=== PATIENT | female | born 1995 | race Caucasian/White ===

== ENCOUNTER 2016-10-08 14:22 | Emergency (ER) | payer OTHER ==
[2016-10-08 14:49] VITALS: BP 137/73; PULSE 72; RESP 18; TEMP 99.5
--- NOTE | 2016-10-08 15:30 | ED PDOC ---
Arrival/HPI - General Historian: Patient - History of Present Illness Time/Duration: 24 hours Symptom Onset: Sudden Symptom Course: Unchanged Severity Level: Mild Activities at Onset: Light Context: Home <Hakan Barnes - Last Filed: 10/08/16 16:49> <Karyn Vidal PA-C - Last Filed: 10/08/16 17:11> - General Chief Complaint: Lower Extremity Problem/Injury Time Seen by Provider: 10/08/16 15:26 - History of Present Illness Narrative History of Present Illness (Text): 10/08/16 15:27 Hawa James is a 20 year old female who presents to the emergency department complaining of left foot pain. Patient states that the refrigerator door fell off the hinge onto her left foot. Reports of pain and bruising to the area. Denies any numbness/ weakness to the extremity or any difficulty ambulating. Denies any other complaints. (Hakan Barnes) Past Medical History - Provider Review Nursing Documentation Reviewed: Yes - Infectious Disease Hx of Infectious Diseases: None - Reproductive Menopause: No - Psychiatric Hx Substance Use: No - Anesthesia Hx Anesthesia: No <Hakan Barnes - Last Filed: 10/08/16 16:49> Family/Social History - Physician Review Nursing Documentation Reviewed: Yes Family/Social History: No Known Family HX Smoking Status: Unknown If Ever Smoked Hx Alcohol Use: No Hx Substance Use: No <Hakan Barnes - Last Filed: 10/08/16 16:49> Allergies/Home Meds <Hakan Barnes - Last Filed: 10/08/16 16:49> <Karyn Vidal PA-C - Last Filed: 10/08/16 17:11> Allergies/Adverse Reactions: Allergies No Known Allergies Allergy (Verified 10/08/16 14:49) Review of Systems - Physician Review All systems were reviewed & negative as marked: Yes - Review of Systems Constitutional: Normal. absent: Fatigue, Fevers Respiratory: Normal Cardiovascular: Normal Gastrointestinal: Normal. absent: Abdominal Pain, Diarrhea, Nausea, Vomiting Genitourinary Female: Normal Musculoskeletal: Other (left foot pain and bruising ) <Hakan Barnes - Last Filed: 10/08/16 16:49> Physical Exam Vital Signs Reviewed: Yes Temperature: Afebrile Blood Pressure: Normal Pulse: Regular Respiratory Rate: Normal Appearance: Positive for: Well-Appearing, Non-Toxic, Comfortable Pain Distress: None Mental Status: Positive for: Alert and Oriented X 3 - Systems Exam Head: Present: Atraumatic, Normocephalic Pupils: Present: PERRL Conjunctiva: Present: Normal Respiratory/Chest: Present: Clear to Auscultation, Good Air Exchange. No: Respiratory Distress, Accessory Muscle Use Cardiovascular: Present: Regular Rate and Rhythm, Normal S1, S2. No: Murmurs Upper Extremity: Present: Normal Inspection. No: Cyanosis, Edema Lower Extremity: Present: Other (ecchymosis and tenderness to dorsal lateral aspect of left foot. ). No: Edema Neurological: Present: GCS=15, CN II-XII Intact, Speech Normal Skin: Present: Warm, Dry, Normal Color. No: Rashes Psychiatric: Present: Alert, Oriented x 3, Normal Insight, Normal Concentration <Hakan Barnes - Last Filed: 10/08/16 16:49> Vital Signs Temp Pulse Resp BP Pulse Ox 10/08/16 15:39 72 18 137/73 98 10/08/16 14:43 99.5 F 72 18 137/73 100 Medical Decision Making <Hakan Barnes - Last Filed: 10/08/16 16:49> <Karyn Vidal PA-C - Last Filed: 10/08/16 17:11> ED Course and Treatment: 10/08/16 15:33 Impression: A 20 year old female who presents to the ed complaining of left foot pain. On PE, there is tenderness and ecchymosis to dorsal lateral aspect of left foot. Plan: -- Anaprox -- Left Foot X-ray Progress Notes: (Hakan Barnes) 10/08/16 17:07 XR L foot: no fracture, no dislocation, as read by MAX Patient advised that official radiology read of XR is still pending and will call the patient if there is any discrepancy within 24 hours. She results discussed with the patient in great detail. Lam wrap applied to the foot. Patient instructed on crutch walking. Based on history, exam and diagnostic results plan will be for outpatient follow up. Patient states she fully agrees with and understands discharge instructions. States that she agrees with the plan and disposition. Verbalized and repeated discharge instructions and plan. I have given the patient opportunity to ask any additional questions. Follow up with the clinic in 1-2 days without fail. Advised to take medication as prescribed. Return to the emergency room at any time for any new or worsening symptoms. (Karyn Vidal PA-C) - RAD Interpretation Radiology Orders: 10/08/16 15:45 FOOT LEFT 3 VIEWS ROUTINE [RAD] Stat - Medication Orders Current Medication Orders: Discontinued Medications Naproxen (Anaprox Ds) 550 mg PO ONCE STA Stop: 10/08/16 15:46 Last Admin: 10/08/16 16:35 Dose: 550 MG - Scribe Statement The provider has reviewed the documentation as recorded by the Scribe <Hakan Barnes - Last Filed: 10/08/16 16:49> - PA / HAT FINISHER / Resident Statement MD/ has reviewed & agrees with the documentation as recorded. <Karyn Vidal PA-C - Last Filed: 10/08/16 17:11> - Scribe Statement Mary Anne Acuna All medical record entries made by the Scribe were at my direction and personally dictated by me. I have reviewed the chart and agree that the record accurately reflects my personal performance of the history, physical exam, medical decision making, and the department course for this patient. I have also personally directed, reviewed, and agree with the discharge instructions and disposition. (Hakan Barnes) Disposition/Present on Arrival - Present on Arrival History of DVT/PE: No History of Uncontrolled Diabetes: No Urinary Catheter: No History of Decub. Ulcer: No History Surgical Site Infection Following: None <Hakan Barnes - Last Filed: 10/08/16 16:49> - Present on Arrival Any Indicators Present on Arrival: No History of DVT/PE: No History of Uncontrolled Diabetes: No Urinary Catheter: No History of Decub. Ulcer: No - Disposition Have Diagnosis and Disposition been Completed?: Yes Disposition Time: 17:09 Patient Plan: Discharge <Karyn Vidal PA-C - Last Filed: 10/08/16 17:11> - Disposition Diagnosis: Contusion of foot, left Disposition: HOME/ ROUTINE Patient Problems: Current Active Problems Problem Status Diagnosed Contusion of foot, left Acute Condition: GOOD Discharge Instructions (ExitCare): Contusion in Adults (ED) Print Language: LATVIAN Additional Instructions: Thank you for letting us take care of you today. You were treated for left foot contusion. The emergency medical care you received today was directed at your acute symptoms. If you were prescribed any medication, please fill it and take as directed. It may take several days for your symptoms to resolve. Return to the Emergency Department if your symptoms worsen, do not improve, or if you have any other problems. Please contact your doctor in 2 days for re-evaluation and follow up / or call one of the physicians/clinics you have been referred to that are listed on the Patient Visit Information form that is included in your discharge packet. Bring any paperwork you were given at discharge with you along with any medications you are taking to your follow up visit. Our treatment cannot replace ongoing medical care by a primary care provider (PCP) outside of the emergency department. Thank you for allowing the [facility] team to be part of your care today. If you had an STI test: It will take 48 hours for the results. Please call after 1 week if you have not heard back. Prescriptions: Naproxen 500 mg PO BID #30 tab Referrals: Irma Farfan, [Primary Care Provider] - Follow up with primary [facility] [Outside] - Follow up with primary Forms: WORK NOTE
[2016-10-08 15:40] VITALS: O2SAT 98
[2016-10-08] MEDS ORDERED: Naproxen 550 mg Tab PO STA (15:45)
--- NOTE | 2016-10-09 09:25 | RAD ---
PROCEDURE: Left Foot Radiographs. HISTORY: pain COMPARISON: None. FINDINGS: BONES: Normal. No fracture. JOINTS: Normal. SOFT TISSUES: Normal. OTHER FINDINGS: None. IMPRESSION: Normal left foot radiographs.
== END 2016-10-08 17:32 | disposition home or self-care (01) ==
LOC: ED 14:22
DX: S90.32XA Contusion of left foot, initial encounter (principal); W20.8XXA Other cause of strike by thrown, projected or falling object, initial encounter; Y92.009 Unspecified place in unspecified non-institutional (private) residence as the place of occurrence of the external cause